=== PATIENT | female | born 1970 | race Asian ===

== ENCOUNTER 2019-07-11 04:35 | Emergency (ER) | payer OTHER ==
[~2019-07-11] VITALS: Ht 162.6 cm; Wt 56.2 kg
[2019-07-11 04:42] VITALS: Ht 162.6 cm; Wt 56.2 kg
[2019-07-11 06:55] LABS: BASOPHIL % 0.6 % (0-2); PLATELET COUNT 265 x10^3mcL (130-400); RED CELL DISTRIBUTION WIDTH 12.7 % (11.5-14.5)
[2019-07-11 06:59] LABS: CALCIUM 8.2 mg/dL (8.5-10.1); CARBON DIOXIDE 27.7 mmol/L (21-32); CHLORIDE SERUM 106 mmol/L (98-107); CREATININE SERUM 0.7 mg/dL (0.6-1.0); GFR1 > 60 mL/min; GLUCOSE SERUM 90 mg/dL (74-106); POTASSIUM SERUM 3.6 mmol/L (3.5-5.1); SODIUM SERUM 140 mmol/L (136-145)
[2019-07-11 07:04] LABS: ALBUMIN 3.9 g/dL (3.4-5.0); ALKALINE PHOSPHATASE 65 U/L (46-116); ALT/SGPT 33 U/L (14-59); AST/SGOT 20 U/L (15-37); BILIRUBIN TOTAL 0.8 mg/dL (0.20-1.00); HDL CHOLESTEROL 50 mg/dL (40-60); LIPASE 163 IU/L (73-393); TOTAL PROTEIN, SERUM 7.4 g/dL (6.4-8.2); TRIGLYCERIDES 53 mg/dL (<150)
[2019-07-11 07:05] LABS: CHOLESTEROL 209 mg/dL (<200); CHOLESTEROL/HDL RATIO 4.2
[2019-07-11 07:16] LABS: T3 TOTAL 1.11 ng/mL
[2019-07-11 07:25] LABS: FREE T4 0.87 ng/dL (0.76-1.46); FREE THYROXINE INDEX 1.8 ug/dL (1.4-4.5); T4(THYROXINE) 5.7 ug/dL (4.7-13.3)
[2019-07-11 08:24] LABS: microscopic required? YES; urine erythrocyte TRACE (NEGATIVE)
[2019-07-11 08:32] VITALS: BP 152/88
== END 2019-07-11 08:32 | disposition home or self-care (01) ==
LOC: ED 04:35
PROVIDERS: Specialist
DX: R07.89 Other chest pain (principal)
CPT/HCPCS: 83880; 84439; J7030; Q0092